=== PATIENT | male | born 1955 | race African-American/Black ===

== ENCOUNTER 2023-06-19 23:08 | Emergency (ER) | payer OTHER, SELFPAY ==
[2023-06-19 23:10] VITALS: BP 159/92
--- NOTE | 2023-06-19 23:20 | ED.GENMED ---
History of Present Illness
General
Chief Complaint: Prescription Refill
Source: patient
Exam Limitations: none
Time Seen by Provider: 06/19/23 23:11
Nursing documentation reviewed up to this point in time: agreed with
Travel History
Have you had any contact with someone who has COVID-19?: No
Do you have any symptoms of coronavirus? Fever > 100 degrees, chills, cough, shortness of breath, sore throat, loss of taste or smell, muscle aches, or headache?: No
History of Present Illness
History of Present Illness:
68-year-old male presents in police incarceration. He was picked up and does not have his Keppra. He just is here for a dose of Keppra. He denies any complaints at this time. He states he has not taken his seizure meds in 3 days.
Past History
Past History
ED Past Medical History: Seizures
ED Past Surgical History: None
Social History
Tobacco: Smoker
Alcohol: Occasional
Drug: Cocaine
Review of Systems
Review of Systems
Allergies reviewed?: Yes
Other source history: other (Police)
All Other Systems: Not applicable
Constitutional: Reports no symptoms
EENT: Reports no symptoms
Respiratory: Reports no symptoms
Cardiac: Reports no symptoms
ABD/GI: Reports no symptoms
: Reports no symptoms
Musculoskeletal: Reports no symptoms
Skin: Reports no symptoms
Neurological: Reports no symptoms
Endocrine: Reports no symptoms
Hematologic/Lymphatic: Reports no symptoms
Psychiatric: Reports no symptoms
Phy Exam
General Physical Exam
General Presentation: well appearing and no apparent distress
General Skin: warm and dry
General Habitus: normal
General Mental: alert
General Hydration: appears well hydrated
ENT Exam
ENT Exam: EOMI, pharynx normal, neck supple and normocephalic
Eye Exam
Eye Exam: PERRL, cornea clear and conjunctiva normal
Cardiovascular Exam
Cardiovascular Exam: regular rate/rhythm, no edema, no murmur and normal peripheral pulses
Pulmonary Exam
Pulmonary Exam: lungs clear, no respiratory distress, no rales, no crackles, no rhonchi, no stridor, no wheezing and no cough
Gastrointestinal Exam
Gastrointestinal Exam: normal bowel sounds, non tender, soft, no organomegaly, no pulsatile mass and non distended
Neurological Exam
Neurological Exam: alert, oriented x3, no motor deficits and speech normal
Musculoskeletal Exam
Musculoskeletal Exam: full ROM and no edema
Skin Exam
Skin Exam: normal color, warm/dry, no rash and no petechia
Psychiatric Exam
Psychiatric Exam: normal mood/affect
Course
Orders/Labs/Results
Orders:
Orders
06/19/23 23:18
Levetiracetam [Keppra] 1,000 mg PO NOW STA
Vital Signs
Initial and Last Documented VS:
Initial Vital Signs
Temp Pulse Resp BP Pulse Ox
97.9 F 59 18 159/92 99
06/19/23 23:10 06/19/23 23:10 06/19/23 23:10 06/19/23 23:10 06/19/23 23:10
Last Documented Vital Signs
Temp Pulse Resp BP Pulse Ox
97.9 F 59 18 159/92 99
06/19/23 23:10 06/19/23 23:10 06/19/23 23:10 06/19/23 23:10 06/19/23 23:10
*Critical Care Note
Total Time (30-74mins, 75-104mins- exclusive of procedures): Not Applicable
ED Attending Note
-
Portions of this chart may have been created with voice recognition software.� Occasional wrong word or��sound alike� substitutions may have occurred due to the inherent limitations of voice recognition software.
Discharge Plan
Departure
Patient Disposition: Home (Routine Discharge)
Date of Disposition: 06/19/23
Time of Disposition: 23:22
Patient with high blood pressure during this ER visit?: Yes
Discharge Problem:
Encounter for medication refill
Instructions: Seizures, Adult (DC), BLOOD PRESSURE
Prescriptions:
New
levetiracetam [Keppra] 1,000 mg tablet
1,000 mg PO BID 30 Days Qty: 60 0RF
Referrals:
UNKNOWN - PT DOES,NOT KNOW [Family Provider] -
Activity Restrictions/Additional Instructions:
Patient is medically cleared for incarceration. He was giving a prescription for Keppra 1000 mg p.o. twice a day
It was a pleasure meeting you and taking part in your care. We hope for your continued healing and wellness.
Please read discharge instructions in their entirety. However, they are for general education and may not describe your exact diagnosis at discharge. Information on your ER visit and medical conditions were discussed with you along with appropriate
follow up information...
If indicated, please take your medications as instructed and indicated on discharge paperwork.
Please schedule a follow up appointment as directed. Call to schedule an appointment
Please return to the emergency department with ANY change in, persisting, or worsening of symptoms. If any of your symptoms do not improve, or persist, or become more severe within 6-12 hours, please return to the emergency department for further
care.
Please return to the emergency department if you develop a headache, neck pain/stiffness, fever greater than 100.4F, chest pain, shortness of breath, persistent nausea, vomiting, slurred speech, difficulty walking, numbness/tingling, weakness, signs
of infection or any other symptoms that are worrisome to you.
If you have any questions or concerns please do not hesitate to call the Hospital at
Interventions
Interventions:
*Risk Screen - Suicide Last Done: 06/19/23 23:13
*General Assessment Last Done: 06/19/23 23:13
*Neglect/Abuse Screening Last Done: 06/19/23 23:13
*ED COVID-19 Vaccine History Last Done: 06/19/23 23:13
[2023-06-19] MEDS: KEPPRA 1000 MG PO (23:28)
== END 2023-06-19 23:40 | disposition home or self-care (01) ==
LOC: EMR 23:08
PROVIDERS: EMERGENCY PHYSICIAN Student in an Organized Health Care Education/Training Program
DX: Z76.0 Encounter for issue of repeat prescription (principal); R03.0 Elevated blood-pressure reading, without diagnosis of hypertension; F17.200 Nicotine dependence, unspecified, uncomplicated
CPT/HCPCS: 99283